=== PATIENT | female | born 1955 | race Caucasian/White ===

== ENCOUNTER 2016-07-21 03:18 | Emergency (ER) | payer SELFPAY ==
[~2016-07-21] VITALS: Ht 170.2 cm; Wt 70.0 kg
[2016-07-21 03:22] VITALS: BP 143/80; PULSE 54; RESP 16; TEMP 97.7; O2SAT 99
== END 2016-07-21 03:55 | disposition left against medical advice (07) ==
LOC: NED 03:18
DX: R10.9 Unspecified abdominal pain (principal)
CPT/HCPCS: 99281